=== PATIENT | female | born 1955 | race Caucasian/White ===

== ENCOUNTER 2017-04-04 17:12 | Emergency (ER) | payer OTHER, BC ==
[~2017-04-04] VITALS: Ht 160 cm; Wt 80.5 kg
[~2017-04-04 17:12] MED LIST: ACTONEL35 MG; ACTONEL35 MG PO; AMLODIPINE BESY10 MG PO; AMLODIPINE BESYL5 MG PO; APRESOLINE50 MG PO; Ambien PO; Aspirin E.C. PO; BALANCED B PO; CARVEDILOL12.5 MG PO; CARVEDILOL3.125 MG PO; CARVEDILOL6.25 MG PO; CELLCEPT250 MG PO; CELLCEPT500 MG PO; COREG25 M1 PO; COREG6.25 M1 PO; COZAAR100 MG PO; CYMBALTA60 MG PO; Cellcept PO; Coreg PO; Coumadin,Jantoven PO; Cozaar PO; Cymbalta PO; DILAUDID2 MG PO; ECOTRIN81 M1 PO; ECOTRIN81 MG PO; ENALAPRIL MALE2.5 MG PO; ERGOCALCIF50000 UNIT PO; ESZOPICLONE3 MG PO; FLAGYL500 MG PO; FOSAMAX70 MG PO; FUROSEMIDE20 MG PO; IMODIUM MS REL1 EACH PO; LANTUS (UNITS)1 UNIT IV; LANTUS (UNITS)1 UNIT SC; LANTUS 10100 UNITS/ SC; LANTUS 3 M100 UNITS1 SC; LASIX20 MG PO; LASIX40 MG PO; LIPITOR40 MG PO; LISINOPRIL20 MG PO; LO-DOSE ASPIRIN81 M1 PO; LORAZEPAM1 MG PO; LUNESTA2 MG PO; LYRICA50 MG PO; Lipitor PO; METAXALONE800 MG PO; METRONIDAZOLE250 MG PO; MYCOPHENOLATE250 MG PO; NABI650T PO; NEXIUM40 MG PO; NITROFURANTOIN PO; NITROFURANTOIN100 MG PO; NORVASC5 MG PO; NOVOLOG (UNITS1 UNIT IV; NOVOLOG (UNITS1 UNIT SC; NOVOLOG PE100 UNITS/ SC; Norco 10/325 PO; Norvasc PO; PLAVIX75 MG PO; PREDNISOLONE5 MG PO; PREDNISONE5 M2 PO; PREDNISONE5 MG PO; PREVACID30 MG PO; PROBIOTIC1 EAC1 PO; PROGRAF0.5 MG PO; PROGRAF1 MG PO; PROMETHAZINE HC25 M1 PO; Phenergan PO; Prograf PO; Pyridoxine,Vitamin B PO; ROXICODONE5 MG PO; SIMVASTATIN80 MG PO; SKELAXIN400 M1 PO; Skelaxin PO; TACROLIMUS ANHYD1 MG PO; TETRACYCLINE H250 MG PO; TOPAMAX50 MG PO; TOPIRAMATE50 MG PO; TRAMADOL HCL50 MG PO; TRAZODONE HCL50 MG PO; TYLENOL EXTRA500 MG PO; Topamax PO; VANCOCIN 250 M250 MG PO; VANCOMYCIN125 MG/2.5 PO; VITAMIN B-6100 MG PO; VITAMIN D10000 UNIT PO; VITAMIN D250000 UNIT PO; VITAMIN D5000 UNIT PO; ZOLPIDEM TARTRA10 MG PO; ZOLPIDEM TARTRAT5 MG PO; [UNRECOGNIZED DRUG - OTHER] PO
[2017-04-04 17:45] LABS: POINT-OF-CARE METER ID UU13113778
[2017-04-04 18:41] LABS: POINT-OF-CARE METER ID UU13113747
[2017-04-04 19:30] LABS: HEMATOCRIT 29.9 % (36.0-46.0); MCH 30.2 PG (29.0-34.0); MCHC 33.1 G/DL (30.0-36.0); MCV 91.2 FL (83-99); MEAN PLAT.VOLUME 10.3 uM^3 (9.5-12.4); PLATELET COUNT 167 K/uL (156-360); RBC DIS.WIDTH-CV 14.3 % (11.8-14.6); RBC DIS.WIDTH-SD 47.9 % (39-53); RED BLOOD COUNT 3.28 M/uL (3.80-5.20); WHITE BLOOD COUNT 5.2 K/uL (4.1-10.2)
[2017-04-04 19:41] LABS: CHLORIDE 107 mEq/L (99-109); POTASSIUM 5.2 mEq/L (3.7-5.4); SODIUM 135 mEq/L (136-147)
[2017-04-04 19:43] LABS: GLUCOSE 109 mg/dL (70-99)
[2017-04-04 19:44] LABS: ANION GAP 7 MEQ/L (2-14)
[2017-04-04 19:45] LABS: ADD MIUA? NO; BILIRUBIN NEGATIVE; BLOOD NEGATIVE; COLOR YELLOW ((YELLOW)); GLUCOSE (STRIP) NEGATIVE; KETONES NEGATIVE; LEUKOCYTES NEGATIVE; NITRITE NEGATIVE; PROTEIN (STRIP) 30; SPECIFIC GRAVITY 1.011 (1.000-1.030); UCUL ADDED? NO; UROBILINOGEN 0.2 MG/DL (0.2-1.0)
[2017-04-04 19:46] LABS: GFR ESTIMATE (CALCULATED) 32 mL/min/
[2017-04-04 19:47] LABS: UREA NITROGEN (BUN) 61 mg/dL (9-23)
[2017-04-04 19:58] LABS: POINT-OF-CARE METER ID UU13113747
[2017-04-04 23:33] VITALS: BP 155/71
== END 2017-04-04 23:32 | disposition home or self-care (01) ==
LOC: EME 17:12
PROVIDERS: Emergency Medicine
DX: R53.1 Weakness (principal); W18.30XA Fall on same level, unspecified, initial encounter; R51 Headache; R41.0 Disorientation, unspecified; M79.602 Pain in left arm; M79.605 Pain in left leg; R10.9 Unspecified abdominal pain; Z94.0 Kidney transplant status; I10 Essential (primary) hypertension; E78.5 Hyperlipidemia, unspecified; E11.9 Type 2 diabetes mellitus without complications; K21.9 Gastro-esophageal reflux disease without esophagitis; Z86.73 Personal history of transient ischemic attack (TIA), and cerebral infarction without residual deficits; Z79.4 Long term (current) use of insulin; Z79.82 Long term (current) use of aspirin; Z87.891 Personal history of nicotine dependence
CPT/HCPCS: 70450; 71020; 72170; 73060; 73090; 73552; 73590; 73630; 80048; 81003; 82948; 85027; 99281; 99284

== ENCOUNTER 2018-03-03 18:31 | Emergency (ER) | payer OTHER, BC ==
[~2018-03-03] VITALS: Ht 160 cm; Wt 87.1 kg
[~2018-03-03 18:31] MED LIST changes: +CRANBERRY CONC500 MG PO; +TERAZOSIN HCL2 MG PO; +ZESTRIL10 MG PO; +ZOLOFT25 MG PO
[2018-03-03 19:34] LABS: HEMATOCRIT 28.1 % (36.0-46.0); HEMOGLOBIN 9.5 G/DL (11.9-15.5); MCH 29.9 PG (29.0-34.0); MCHC 33.8 G/DL (30.0-36.0); PLATELET COUNT 136 K/uL (156-360); RBC DIS.WIDTH-CV 13.5 % (11.8-14.6); RBC DIS.WIDTH-SD 43.9 % (39-53); RED BLOOD COUNT 3.18 M/uL (3.80-5.20); WHITE BLOOD COUNT 4.8 K/uL (4.1-10.2)
[2018-03-03 19:40] LABS: INTER. NORMALIZED RATIO 0.9
[2018-03-03 19:43] LABS: MCV 88.4 FL (83-99)
[2018-03-03 19:43] LABS: PTT 27.9 SEC (25-37)
[2018-03-03 19:46] LABS: CHLORIDE 97 mEq/L (99-109); POTASSIUM 4.8 mEq/L (3.7-5.4); SODIUM 126 mEq/L (136-147)
[2018-03-03 19:48] LABS: GLUCOSE 155 mg/dL (70-99)
[2018-03-03 19:52] LABS: CREATININE 1.5 mg/dL (0.6-1.3); GFR ESTIMATE (CALCULATED) 37 mL/min/; UREA NITROGEN (BUN) 33 mg/dL (9-23)
[2018-03-03 23:39] VITALS: BP 197/75
== END 2018-03-03 23:41 ==
LOC: EME 18:31
PROVIDERS: Emergency Medicine
DX: S00.93XA Contusion of unspecified part of head, initial encounter (principal); S80.01XA Contusion of right knee, initial encounter; M54.5 Low back pain; W18.30XA Fall on same level, unspecified, initial encounter; Z96.651 Presence of right artificial knee joint; I12.9 Hypertensive chronic kidney disease with stage 1 through stage 4 chronic kidney disease, or unspecified chronic kidney disease; E11.22 Type 2 diabetes mellitus with diabetic chronic kidney disease; N18.9 Chronic kidney disease, unspecified; Z79.4 Long term (current) use of insulin; E78.5 Hyperlipidemia, unspecified; F32.9 Major depressive disorder, single episode, unspecified; F41.9 Anxiety disorder, unspecified; K21.9 Gastro-esophageal reflux disease without esophagitis; Z86.73 Personal history of transient ischemic attack (TIA), and cerebral infarction without residual deficits; H54.7 Unspecified visual loss; Z99.2 Dependence on renal dialysis; Z94.0 Kidney transplant status; Z79.82 Long term (current) use of aspirin; Z88.5 Allergy status to narcotic agent; Z87.891 Personal history of nicotine dependence
CPT/HCPCS: 70450; 72131; 73564; 80048; 85027; 85610; 85730; 99281; 99285

== ENCOUNTER 2018-04-11 12:07 | Emergency (ER) | payer OTHER, BC ==
[~2018-04-11] VITALS: Ht 160 cm; Wt 95.3 kg
[2018-04-11 15:55] VITALS: BP 196/84
== END 2018-04-11 16:07 | disposition home or self-care (01) ==
LOC: EME 12:07
DX: S20.229A Contusion of unspecified back wall of thorax, initial encounter (principal); S80.02XA Contusion of left knee, initial encounter; S20.212A Contusion of left front wall of thorax, initial encounter; S51.812A Laceration without foreign body of left forearm, initial encounter; S00.03XA Contusion of scalp, initial encounter; W18.30XA Fall on same level, unspecified, initial encounter; E78.5 Hyperlipidemia, unspecified; K21.9 Gastro-esophageal reflux disease without esophagitis; I12.9 Hypertensive chronic kidney disease with stage 1 through stage 4 chronic kidney disease, or unspecified chronic kidney disease; N18.9 Chronic kidney disease, unspecified; E11.22 Type 2 diabetes mellitus with diabetic chronic kidney disease; Z94.0 Kidney transplant status; F41.9 Anxiety disorder, unspecified; F32.9 Major depressive disorder, single episode, unspecified; Z79.4 Long term (current) use of insulin; Z79.82 Long term (current) use of aspirin; Z86.73 Personal history of transient ischemic attack (TIA), and cerebral infarction without residual deficits; Z87.891 Personal history of nicotine dependence; Z90.49 Acquired absence of other specified parts of digestive tract; Z88.5 Allergy status to narcotic agent
CPT/HCPCS: 70450; 71250; 72125; 73564; 82948; 99281; 99284

== ENCOUNTER 2018-04-16 10:33 | Emergency (ER) | payer OTHER, BC ==
[~2018-04-16] VITALS: Ht 160 cm; Wt 86.2 kg
[2018-04-16 11:28] LABS: BASOPHIL (%) 0.6 % (0-1); EOSINOPHIL (%) 1.2 % (0-5); EOSINOPHIL COUNT 0.1 K/uL (0-0.3); HEMATOCRIT 31.2 % (36.0-46.0); HEMOGLOBIN 10.1 G/DL (11.9-15.5); IMMATURE GRANULOCYTE (%) 0.4 % (0.0-0.7); LYMPHOCYTE (%) 15.3 % (15-42); LYMPHOCYTE COUNT 0.8 K/uL (1.0-2.8); MCH 28.6 PG (29.0-34.0); MCHC 32.4 G/DL (30.0-36.0); MCV 88.4 FL (83-99); MONOCYTE (%) 10.7 % (3-12); MONOCYTE COUNT 0.6 K/uL (0-0.8); NEUTROPHIL (%) 71.8 % (45-76); NEUTROPHIL COUNT 3.7 K/uL (1.8-6.4); PLATELET COUNT 165 K/uL (156-360); RBC DIS.WIDTH-CV 13.9 % (11.8-14.6); RBC DIS.WIDTH-SD 45.1 % (39-53); RED BLOOD COUNT 3.53 M/uL (3.80-5.20); WHITE BLOOD COUNT 5.2 K/uL (4.1-10.2)
[2018-04-16 11:41] LABS: CHLORIDE 103 mEq/L (99-109); POTASSIUM 4.1 mEq/L (3.7-5.4); SODIUM 135 mEq/L (136-147)
[2018-04-16 11:43] LABS: GLUCOSE 69 mg/dL (70-99)
[2018-04-16 11:47] LABS: CREATININE 1.4 mg/dL (0.6-1.3); GFR ESTIMATE (CALCULATED) 40 mL/min/
[2018-04-16 11:48] LABS: UREA NITROGEN (BUN) 38 mg/dL (9-23)
[2018-04-16 13:39] VITALS: BP 180/97
== END 2018-04-16 13:39 | disposition home or self-care (01) ==
LOC: EME 10:33
PROVIDERS: Emergency Medicine
DX: E11.649 Type 2 diabetes mellitus with hypoglycemia without coma (principal); Z79.4 Long term (current) use of insulin; E11.22 Type 2 diabetes mellitus with diabetic chronic kidney disease; I12.9 Hypertensive chronic kidney disease with stage 1 through stage 4 chronic kidney disease, or unspecified chronic kidney disease; N18.9 Chronic kidney disease, unspecified; Z94.0 Kidney transplant status; H54.7 Unspecified visual loss; E78.5 Hyperlipidemia, unspecified; Z86.73 Personal history of transient ischemic attack (TIA), and cerebral infarction without residual deficits; Z79.02 Long term (current) use of antithrombotics/antiplatelets; Z79.82 Long term (current) use of aspirin; Z79.52 Long term (current) use of systemic steroids; Z87.891 Personal history of nicotine dependence
CPT/HCPCS: 80048; 82948; 85025; 99281; 99284